=== PATIENT | female | born 1985 | race Caucasian/White ===

== ENCOUNTER 2020-01-28 23:00 | Emergency (ER) | payer BC ==
[~2020-01-28] VITALS: Ht 157.5 cm; Wt 74.8 kg
--- NOTE | 2020-01-28 23:30 | NUR ---
PATIENT CAME TO ER BED 4 C/O BILATERAL EYE PAIN AND SWELLING SINCE YESTERDAY AT WORK. PATIENT STATES THAT SOMETHING FLEW INTO HER EYE. AAOX4. NO SOB. BREATHING EVENLY AND UNLABORED ON ROOOM AIR.
--- NOTE | 2020-01-28 23:38 | NUR ---
PT UNABLE TO OPEN EYES FOR VISUAL ACUITY. NORMALLY WEARS GLASSES.
[2020-01-29] MEDS ORDERED: HYDROCODONE/APAP 5/325MG 1 EACH TABLET PO ONE
[2020-01-29] MEDS ORDERED: TETRACAINE HCL 0.5% OPHTALMIC 15 ML BOTTLE OP ONE
[2020-01-29] MEDS ORDERED: HYDROCODONE/APAP 5/325MG 1 EACH TABLET ONE (00:11)
[2020-01-29 00:39] VITALS: BP 134/79
--- NOTE | 2020-01-29 00:39 | NUR ---
Patient discharged to home in stable condition. Written and verbal after care instructions given. Patient verbalizes understanding of instruction.Pt ambulatory with a steady gait
== END 2020-01-29 00:40 | disposition home or self-care (01) ==
LOC: ER 23:02
DX: H16.8 Other keratitis (principal)